=== PATIENT | male | born 1975 | race Caucasian/White ===

== ENCOUNTER 2021-11-24 00:14 | Emergency (ER) | payer BC ==
[~2021-11-24] VITALS: Ht 172.7 cm; Wt 72.6 kg
[2021-11-24 00:13] VITALS: BP 197/99
--- NOTE | 2021-11-24 00:14 | NUR ---
ARRIVAL ARRIVED VIA EMS. ALERT AND ORIENTED X3. DYSPNEA, SHALLOW BREATHING, BACK PAIN X 1WEEK. EMS GAVE TORADOL 30MG, MORPHINE 6MG IV, AND NS 900ML IN ROUTE. ALERT AND ORIENTED X3. NOTIFIED DR. FERNANDEZ AWAITING NEW ORDERS.
--- NOTE | 2021-11-24 00:40 | PCM.EKG ---
[facility] Test Date: 2021-11-24 Test Time: 00:15:11 Pat Name: STEPHANI PETERSON Department: Room: Gender: M Product Sales Engineer: : 1975 Requested By: REBECCA BAKER Order Number: [id number] Reading MD: Rebecca BAKER Measurements Intervals [place] Rate: 103 P: 66 FL: 184 QRS: 31 QRSD: 84 T: -21 QT: 334 QTc: 437 Interpretive Statements Sinus tachycardia Borderline repolarization abnormality No previous ECG available for comparison Electronically Signed On 11-26-2021 7:20:20 CDT by Rebecca BAKER Please click the below link to view image of tracing.
--- NOTE | 2021-11-24 00:40 | ER.PDOC ---
General Chief Complaint: Dyspnea/Respdistress Stated Complaint: SOB, BACK PAIN Time seen by MD: 00:38 Source: patient Exam Limitations: no limitations History of Present Illness Initial Comments Shortness of breath and left chest pain radiating to the back for 6 days. No cough, fever or chills. Patient was brought in by EMS and received 6 mg of morphine and 30 mg of Toradol. Severity: moderate Prior Episodes/Possible Cause: no prior episodes Associated Symptoms: chest pain Allergies: Coded Allergies: Penicillins (Verified Allergy, Unknown, Rash, 11/24/21) Past Medical History Medical History: diabetes, hypertension Surgical History: other Family History Significant Family History: no pertinent family hx Social History Smoking: other (dip) Alcohol Use: occassionally Drug Use: none Review of Systems Constitutional: no symptoms reported EENTM: no symptoms reported Respiratory: see HPI Cardiovascular: see HPI Gastrointestinal: no symptoms reported All Other Systems: Reviewed and Negative Physical Exam General Appearance: No Apparent Distress, WD/WN, Anxious HEENT: PERRL/EOMI, Normal ENT Inspection, TMs Normal, Pharynx Normal Neck: Non-Tender, Full Range of Motion, Supple, Normal Inspection Respiratory: chest non-tender, lungs clear, normal breath sounds, no respiratory distress, no accessory muscle use Cardiovascular: Normal Peripheral Pulses, Regular Rate, Rhythm, No Edema, No Gallop, No JVD, No Murmur, Tachycardia Gastrointestinal: Normal Bowel Sounds, No Organomegaly, No Pulsatile Mass, Non Tender, Soft Extremities: Normal Range of Motion, Non-Tender, Normal Inspection, No Pedal Edema, No Calf Tenderness, Normal Capillary Refill Neurologic/Psychiatric: nursing associate II-XII NML as Tested, No Motor/Sensory Deficits, Alert, Normal Mood/Affect, Oriented x 3 Skin: Normal Color, Warm/Dry Lymphatic: No Adenopathy Results/Orders Results/Orders Orders - REBECCA BAKER MD Cbc With Auto Diff (11/24/21 00:35) Comprehensive Metabolic Panel (11/24/21 00:35) Creatine Kinase (11/24/21 00:35) Creatine Kinase Mb (11/24/21 00:35) Probnp B-Type Retail Sales Specialist (11/24/21 00:35) D-Dimer (11/24/21 00:35) Blood Culture (11/24/21 00:35) Xr Chest 1v (11/24/21 00:35) PT (11/24/21 00:35) Partial Thromboplastin Time. (11/24/21 00:35) Ekg-Routine (11/24/21 00:35) Troponin I High Sensitivity (11/24/21 00:35) Lactic Acid(Ml) (11/24/21 00:35) Cta Chest (11/24/21 01:53) Vital Signs Date Time Temp Pulse Resp B/P (MAP) Pulse Ox O2 Delivery O2 Flow Rate FiO2 11/24/21 00:13 98.4 107 28 197/99 (131) 95 Room Air* 0 21 11/24/21 00:13 98.4 107 28 95 11/24/21 00:13 98.4 107 28 Laboratory Tests Test 11/24/21 00:32 11/24/21 00:55 White Blood Count 8.1 10^3/uL (4.5-11.0) Red Blood Count 3.75 10^6/uL (4.50-5.90) L Hemoglobin 12.2 g/dL (13.9-16.3) L Hematocrit 35.3 % (37.0-53.0) L Mean Corpuscular Volume 94.1 fL (78-100) Mean Corpuscular Hemoglobin 32.5 pg (26-34) Mean Corpuscular Hemoglobin Concent 34.6 g/dL (33-36.5) Red Cell Distribution Width 12.2 % (11.5-14.5) Platelet Count 266 10^3/uL (150-400) Mean Platelet Volume 9.4 fL (7.8-11.0) Neutrophils (%) (Auto) 61.2 % (41.0-85.0) Lymphocytes (%) (Auto) 22.5 % (24.0-44.0) L Monocytes (%) (Auto) 7.5 % (5.0-12.0) Neutrophils # (Auto) 5.0 10^3/uL (1.8-7.7) Lymphocytes # (Auto) 1.83 10^3/uL1 (1.0-4.8) Monocytes # (Auto) 0.6 10^3/uL (0.3-0.8) Absolute Immature Granulocyte (auto 0.03 10^3 u/L (0-2) Absolute Eosinophils (auto) 0.6 10^3/uL (0.0-0.2) H Immature Granulocytes % 0.40 % (0.00-0.50) Eosinophils % 7.9 % (0.0-5.0) H Basophils % 0.5 % (0.0-0.2) H Basophils # 0.0 10^3/uL (0.0-0.1) Prothrombin Time < 9.0 SEC (9.1-11.5) L Prothrombin Time INR (Non-Therap) Activated Partial Thromboplast Time 25.9 SEC (22.5-33.1) D-Dimer 0.74 mg/L (0.19-0.49) *H Sodium Level 137 mmol/L (132-145) Potassium Level 3.9 mmol/L (3.6-5.2) Chloride Level 100.0 mmol/L (96-109) Carbon Dioxide Level 24.4 mmol/L (20.0-32) Anion Gap 16.5 Blood Urea Nitrogen 17 mg/dL (7-18) Creatinine 1.11 mg/dL (0.59-1.40) Estimated GFR () 85.6 (>/=60) Est GFR (CKD-EPI)(Non-Afr Thai) 70.7 (>/=60) BUN/Creatinine Ratio 15.0 Glucose Level 301 mg/dL (70-110) H Lactic Acid Level 1.4 mmol/L (0.5-1.9) Calcium Level 8.8 mg/dL (8.4-10.5) Total Bilirubin 0.2 mg/dL (0.2-1.0) Aspartate Amino Transferase (AST) 19 U/L (0-35) Alanine Aminotransferase (ALT) 31 U/L (12-78) Alkaline Phosphatase 78 U/L (50-136) Total Creatine Kinase 330 U/L (39-308) H Creatine Kinase MB 6.6 ng/mL (0.5-3.6) H Troponin I High Sensitivity 5 ng/L (0-75) Pro-B-Type Natriuretic Peptide 46 pg/mL (0-125) Total Protein 7.3 g/dL (6.4-8.2) Albumin 3.4 g/dL (3.4-5.0) Globulin 3.9 Albumin/Globulin Ratio 0.871 POC Glucose 285 (70 - 110) H Progress Progress CTA Chest: . No pulmonary emboli. 2. Minimal left pleural effusion. 3. Dependent atelectatic changes in the posterior lungs. WBC 7.1, repeat glucose is 285, lactate is 1.4, chemistry is unremarkable, CK is 33, troponin is normal. BNP is 46. Patient feels better after receiving morphine and Toradol by the paramedics. Vitals are stable he is ready to go home. EKG/XRAY/CT/US EKG: NSR EKG Comments: HR 103, sinus tachycardia ER DEPART Departure Time of Disposition: 02:45 Disposition: 01 HOME / SELF CARE / HOMELESS Impression: Primary Impression: Pleurisy with effusion Additional Impression: Dyspnea Condition: Improved Additional Instructions: Meloxicam Follow-up with your PCP in 2 to 3 days Return to ED if worsening or concerns Duration or Time Spent with Pa: 60 min Problem Qualifiers Additional Impression: Dyspnea Dyspnea type: unspecified Qualified Codes: R06.00 - Dyspnea, unspecified REBECCA BAKER MD Nov 24, 2021 00:40
--- NOTE | 2021-11-24 00:55 | DIREP ---
PROCEDURE:CHEST 1 VIEW COMPARISON:None. INDICATIONS:SOB FINDINGS: LUNGS/PLEURA:No significant pulmonary parenchymal abnormalities. No effusions. VASCULATURE:Normal. Unremarkable pulmonary vasculature. CARDIAC:Normal. No cardiac silhouette abnormality or cardiomegaly. MEDIASTINUM:Normal. No visible mass or adenopathy. BONES:Normal. No fracture or visible bony lesion. OTHER:Negative. CONCLUSION:Normal chest examination. Dictated by: Cj Lovell M.D. on 11/24/2021 at 00:53 AM
--- NOTE | 2021-11-24 00:56 | NUR ---
BLOOD GLUCOSE BEDSIDE BLOOD GLUCOSE 285. TYPE 1 DIABETIC. HAS INSULIN IN HOTEL. HAS NOT TAKEN INSULIN TONIGHT. NOTIFIED DR. FERNANDEZ. NO NEW ORDERS AT THIS TIME.
[2021-11-24 01:06] LABS: BASOPHIL % 0.5 % (0.0-0.2); EOSINOPHIL # 0.6 10^3/uL (0.0-0.2); EOSINOPHIL % 7.9 % (0.0-5.0); LYMPHOCYTES # 1.83 10^3/uL1 (1.0-4.8); LYMPHOCYTES % 22.5 % (24.0-44.0); MEAN CORP HGB 32.5 pg (26-34); MONOCYTES # 0.6 10^3/uL (0.3-0.8); MONOCYTES % 7.5 % (5.0-12.0); NEUTROPHILS % 61.2 % (41.0-85.0); PLATELET COUNT 266 10^3/uL (150-400); RED CELL DISTRIBUTION WIDTH 12.2 % (11.5-14.5)
[2021-11-24 01:22] LABS: CARBON DIOXIDE 24.4 mmol/L (20.0-32)
--- NOTE | 2021-11-24 01:50 | NUR ---
CRITICAL LAB D.DIMER 0.74. NOTIFIED DR. FERNANDEZ. NO NEW ORDERS AT THIS TIME.
--- NOTE | 2021-11-24 02:36 | DIREP ---
PROCEDURE:CTA CHEST COMPARISON:None. INDICATIONS:Left Chest pain and SOB TECHNIQUE:Post contrast axial images through the chest with multiplanar MIP/3D reconstructions. FINDINGS: PULMONARY ARTERIES:Patent. LUNGS:Dependent atelectatic changes both lung bases posteriorly. PLEURA:Minimal left pleural effusion. CARDIAC:Normal size heart and normal pulmonary vascularity. RV:LV ratio (norm <0.9): Not applicable in the absence of pulmonary embolism. THORACIC AORTA:Normal. MEDIASTINUM:Normal. THYROID:Normal. BONES:Normal. OTHER:No additional findings. CONCLUSION: 1. No pulmonary emboli. 2. Minimal left pleural effusion. 3. Dependent atelectatic changes in the posterior lungs. Dictated by: Cj Lovell M.D. on 11/24/2021 at 02:33 AM
[2021-11-24 02:50] VITALS: BP 139/79
== END 2021-11-24 02:53 | disposition home or self-care (01) ==
LOC: EDBD 00:14 → ER 00:14
DX: J90 Pleural effusion, not elsewhere classified (principal); R06.00 Dyspnea, unspecified; I10 Essential (primary) hypertension; E11.9 Type 2 diabetes mellitus without complications; Z88.0 Allergy status to penicillin
CPT/HCPCS: 99284; 71275; 71045; 80053; 85025; 82948; 36415; 85379; 84484; 87040 ×2; 83605; 82553; 83880; 82550; 85610; 85730; 93005; Q9965